=== PATIENT | male | born 1960 | race Caucasian/White ===

== ENCOUNTER 2019-04-09 01:12 | Emergency (ER) | payer OTHER ==
[~2019-04-09] VITALS: Ht 177.8 cm; Wt 142.0 kg
--- NOTE | 2019-04-09 01:35 | ED.ADGEN ---
Past History Past Medical History: Diabetes, Hypertension Adult General Chief Complaint Chief Complaint ".. I was just sitting at my desk... and ..... All of sudden tonight.. I got slurred speech.. and I could not move my Lt. leg.. and arm.. I can move my leg now... I tried to get up at home.. but I fell because of the weakness on my Lt. side.. . I [facility] me..." HPI HPI Patient is a 59 year old male who presents with above hx and complaints of slurred speech and Lt. side weakness. Pt. does a history of diabetes, hyperlipidemia, hypertension, morbid obesity. Patient on arrival was able to move his left leg that had noticeable weakness of left arm and slurred speech. Patient taken immediately to CT head observed to have a right intracerebral bleed. Discussed presentation with Dr. Lara and Dr. Whitaker CARGO AGENT. Pt. to be transferred to [facility] Neuro ICU. [facility] 8 on arrival. Review of Systems Review of Systems Constitutional: Denies fever or chills [] Eyes: Denies change in visual acuity, redness, or eye pain [] HENT: Denies nasal congestion or sore throat [] Respiratory: Denies cough or shortness of breath [] Cardiovascular: No additional information not addressed in HPI [] GI: Denies abdominal pain, nausea, vomiting, bloody stools or diarrhea [] : Denies dysuria or hematuria [] Musculoskeletal: Complaints of Lt side weakness Integument: Denies rash or skin lesions [] Neurologic: Denies headache, focal weakness Lt arm and Lt. leg, more Lt. arm. [] Complaints of slurred speech. Endocrine: Denies polyuria or polydipsia [] All other systems were reviewed and found to be within normal limits, except as documented in this note. Family History Family History DM , HTN Current Medications Current Medications Current Medications Medications (Trade) Dose Ordered Sig/Javed Start Time Stop Time Status Last Admin Dose Admin Esmolol HCl 250 ml @ 0 mls/hr 1X ONCE 04/09/19 02:00 04/09/19 02:01 DC Lactated Ringer's 1,000 ml @ 100 mls/hr Q10H 04/09/19 01:43 04/09/19 02:13 DC Sodium Chloride 1,000 ml @ 100 mls/hr Q10H 04/09/19 01:43 04/09/19 02:13 DC Allergies Allergies Allergies Coded Allergies Type Severity Reaction Last Updated Verified No Known Drug Allergies 04/09/19 No Physical Exam Physical Exam Constitutional: in acute distress, non-toxic appearance. [] HENT: Normocephalic, atraumatic, bilateral external ears normal, oropharynx moist, no oral exudates, nose normal. Mild Left facial weakness and slurred speech Eyes: PERRLA, EOMI, conjunctiva normal, no discharge. [] Neck: Normal range of motion, no tenderness, supple, no stridor. [] Cardiovascular: Tachycardia Heart rate regular rhythm, no murmur [], PMI to the left Lungs & Thorax: Bilateral breath sounds equal at apex on auscultation [] Abdomen: Bowel sounds normal, soft, no tenderness, no masses, no pulsatile masses. Obese. Skin: Warm, dry, no erythema, no rash. [] Back: No tenderness, no CVA tenderness. [] Extremities: No tenderness, no cyanosis, no clubbing, marked left arm weakness and mild left leg weakness, no edema. [] Neurologic: Alert and oriented X 3, left-sided weakness, has distal sensory, Psychologic: Affect anxious, judgement normal, mood normal. [] Current Patient Data Vital Signs Vital Signs Date Time Temp Pulse Resp B/P (MAP) Pulse Ox O2 Delivery O2 Flow Rate FiO2 04/09/19 01:54 97 19 162/63 (96) 95 Nasal Cannula 2.0 04/09/19 01:34 97.9 Lab Results Laboratory Tests Test 04/09/19 01:25 White Blood Count 8.9 x10^3/uL (4.0-11.0) Red Blood Count 4.13 x10^6/uL (4.30-5.70) L Hemoglobin 14.1 g/dL (13.0-17.5) Hematocrit 41.1 % (39.0-53.0) Mean Corpuscular Volume 100 fL (79-100) Mean Corpuscular Hemoglobin 34 pg (25-35) Mean Corpuscular Hemoglobin Concent 34 g/dL (31-37) Red Cell Distribution Width 13.6 % (11.5-14.5) Platelet Count 215 x10^3/uL (140-400) Neutrophils (%) (Auto) 56 % (31-73) Lymphocytes (%) (Auto) 34 % (24-48) Monocytes (%) (Auto) 7 % (0-9) Eosinophils (%) (Auto) 3 % (0-3) Basophils (%) (Auto) 1 % (0-3) Neutrophils # (Auto) 5.0 x10^3uL (1.8-7.7) Lymphocytes # (Auto) 3.0 x10^3/uL (1.0-4.8) Monocytes # (Auto) 0.6 x10^3/uL (0.0-1.1) Eosinophils # (Auto) 0.3 x10^3/uL (0.0-0.7) Basophils # (Auto) 0.1 x10^3/uL (0.0-0.2) Prothrombin Time 9.9 SEC (9.4-11.4) Prothrombin Time INR 1.0 (0.9-1.1) Activated Partial Thromboplast Time 24 SEC (23-33) D-Dimer (Apyrl) 0.59 mg/L (0.00-0.50) H Sodium Level 143 mmol/L (136-145) Potassium Level 4.0 mmol/L (3.5-5.1) Chloride Level 105 mmol/L (98-107) Carbon Dioxide Level 28 mmol/L (21-32) Anion Gap 10 (6-14) Blood Urea Nitrogen 19 mg/dL (8-26) Creatinine 1.2 mg/dL (0.7-1.3) Estimated GFR (Cockcroft-Gault) 61.6 Glucose Level 181 mg/dL (70-99) H Calcium Level 9.0 mg/dL (8.5-10.1) Magnesium Level 1.3 mg/dL (1.8-2.4) L Total Bilirubin 0.6 mg/dL (0.2-1.0) Direct Bilirubin 0.2 mg/dL (0.0-0.2) Aspartate Amino Transferase (AST) 29 U/L (15-37) Alanine Aminotransferase (ALT) 49 U/L (16-63) Alkaline Phosphatase 67 U/L (46-116) Creatine Kinase 275 U/L (39-308) Troponin I Quantitative < 0.017 ng/mL (0-0.055) MJ-Mgh-T-Type Natriuretic Peptide 24 pg/mL (0-124) Total Protein 6.7 g/dL (6.4-8.2) Albumin 3.7 g/dL (3.4-5.0) Lipase 92 U/L (73-393) EKG EKG My interpretation EKG shows a sinus rhythm at 98 bpm no findings acute STEMI[] Radiology/Procedures Radiology/[place] [address] IMAGING REPORT Signed PATIENT: REX MENDIOLA AACCOUNT: [id number] : 1960 LOCATION: ER AGE: 59 SEX: M EXAM STATUS: DEP ER ORD. PHYSICIAN: PAYAL BLISS MD REASON: cva, short of air PROCEDURE: PORTABLE CHEST 1V PORTABLE CHEST 1V Clinical History: CVA, dyspnea Technique: AP view of the chest was obtained at 04/09/2019 1:43 AM. Comparison: None. Findings: The heart is borderline enlarged. The pulmonary vasculature is normal. The lungs and pleural margins are clear. Impression: Borderline cardiomegaly. Electronically signed by: Salas Saenz III, MD (04/09/2019 2:54 AM) [facility] DICTATED AND SIGNED BY: SALAS SAENZ III, MD DATE: 04/09/19 0254 CC: PAYAL BLISS MD; PCP,NO ~ I interpretation CT shows an acute intercerebral hemorrhage right sided.[][address] [address] IMAGING REPORT Signed PATIENT: REX MENDIOLA AACCOUNT: [id number] : 1960 LOCATION: ER AGE: 59 SEX: M EXAM STATUS: REG ER ORD. PHYSICIAN: PAYAL BLISS MD REASON: Left sided weakness, slurred speech PROCEDURE: CT CODE STROKE HEAD WO CT Head W/O Contrast: History: Left-sided weakness and slurred speech Comparison: none Axial images were obtained without contrast. There is a acute bleed in the right del cid radiata that measures 4.2 x 2.4 cm and continues inferiorly into the right thalamus and continues anteriorly medial to the caudate nucleus. The fong and white matter appears normal and symmetrical for the patients age. There is no midline shift, extraaxial fluid collections or hydrocephalus. There is no focal loss of fong-white matter distinction to suggest acute ischemia, i.e. stroke. Impression: Acute intraparenchymal cerebral hemorrhage on the right no mass effect. No midline shift. These results were called to the Emergency Department at the time of dictation. RS Compliance Statement: One or more of the following individualized dose reduction techniques were utilized for this examination: 1. Automated exposure control 2. Adjustment of the mA and/or kV according to patient size 3. Use of iterative reconstruction technique FOR INTERNAL CODING PURPOSES Critical result: Findings discussed with PAYAL BLISS at 04/09/2019 1:36 AM. RESULT CODE: (C) Electronically signed by: Salas Saenz III, MD (04/09/2019 1:36 AM) [facility] Course & Med Decision Making Course & Med Decision Making Pertinent Labs and Imaging studies reviewed. (See chart for details) Critical care 30 min. Transfer to [facility]- Dr. Lara and Dr. Carter neurosurgery consult. [] Final Impression Final Impression 1. Right intracerebral bleed- Lt side weakness, slurred speech. 2. History of hypertension 3. History hyperlipidemia 4. History of diabetes-glucose 181 5. Elevate D-dimer 0.59 [] Dragon Disclaimer Dragon Disclaimer This electronic medical record was generated, in whole or in part, using a voice recognition dictation system. Dragon Disclaimer This chart was dictated in whole or in part using Voice Recognition software in a busy, high-work load, and often noisy Emergency Department environment. It may contain unintended and wholly unrecognized errors or omissions. PAYAL BLISS MD Apr 09, 2019 01:35
--- NOTE | 2019-04-09 01:39 | RAD ---
CT Head W/O Contrast: History: Left-sided weakness and slurred speech Comparison: none Axial images were obtained without contrast. There is a acute bleed in the right del cid radiata that measures 4.2 x 2.4 cm and continues inferiorly into the right thalamus and continues anteriorly medial to the caudate nucleus. The fong and white matter appears normal and symmetrical for the patients age. There is no midline shift, extraaxial fluid collections or hydrocephalus. There is no focal loss of fong-white matter distinction to suggest acute ischemia, i.e. stroke. Impression: Acute intraparenchymal cerebral hemorrhage on the right no mass effect. No midline shift. These results were called to the Emergency Department at the time of dictation. PQRS Compliance Statement: One or more of the following individualized dose reduction techniques were utilized for this examination: 1. Automated exposure control 2. Adjustment of the mA and/or kV according to patient size 3. Use of iterative reconstruction technique FOR INTERNAL CODING PURPOSES Critical result: Findings discussed with PAYAL BLISS at 04/09/2019 1:36 AM. RESULT CODE: (C) Electronically signed by: Josue Barron III, MD (04/09/2019 1:36 AM) [facility]
[2019-04-09] MEDS ORDERED: IV NORMAL SALINE 1,000ML 1,000 ML IV SCH (01:43)
[2019-04-09] MEDS ORDERED: IV RINGERS SOLUTION,LACTATED 1,000 ML IV SCH (01:43)
[2019-04-09 01:54] VITALS: BP 162/63
[2019-04-09 01:55] LABS: BASO # 0.1 x10^3/uL (0.0-0.2); BASO % 1 % (0-3); EOS # 0.3 x10^3/uL (0.0-0.7); EOS % 3 % (0-3); HEMATOCRIT 41.1 % (39.0-53.0); HEMOGLOBIN 14.1 g/dL (13.0-17.5); LYMPH % 34 % (24-48); MEAN CORPUSCULAR HEMOGLOBIN 34 pg (25-35); MEAN CORPUSCULAR HGB CONC 34 g/dL (31-37); MEAN CORPUSCULAR VOLUME 100 fL (79-100); MONO # 0.6 x10^3/uL (0.0-1.1); MONO % 7 % (0-9); NEUT % 56 % (31-73); PLATELET COUNT 215 x10^3/uL (140-400); RED BLOOD COUNT 4.13 x10^6/uL (4.30-5.70); RED CELL DISTRIBUTION WIDTH 13.6 % (11.5-14.5); WHITE BLOOD COUNT 8.9 x10^3/uL (4.0-11.0)
[2019-04-09] MEDS ORDERED: ESMOLOL 2500MG/250ML PREMIX 250 ML IV ONE (02:00)
[2019-04-09 02:17] LABS: ALBUMIN 3.7 g/dL (3.4-5.0); CREATININE 1.2 mg/dL (0.7-1.3); DIRECT BILIRUBIN 0.2 mg/dL (0.0-0.2); GFR 61.6; MAGNESIUM 1.3 mg/dL (1.8-2.4); TOTAL BILIRUBIN 0.6 mg/dL (0.2-1.0); TOTAL PROTEIN 6.7 g/dL (6.4-8.2)
--- NOTE | 2019-04-09 02:57 | RAD ---
PORTABLE CHEST 1V Clinical History: CVA, dyspnea Technique: AP view of the chest was obtained at 04/09/2019 1:43 AM. Comparison: None. Findings: The heart is borderline enlarged. The pulmonary vasculature is normal. The lungs and pleural margins are clear. Impression: Borderline cardiomegaly. Electronically signed by: Josue Barron III, MD (04/09/2019 2:54 AM) [facility]
--- NOTE | 2019-04-10 03:32 | EKG ---
[address] [address] Test Date: 2019-04-09 Test Time: 01:43:29 Pat Name: RXE MENDIOLA Department: Room: Gender: M Quality Review Trainer: : 1960 Requested By: PAYAL BLISS Order Number: [id number] Reading MD: Measurements Intervals [place] Rate: 98 P: 59 AL: 194 QRS: 54 QRSD: 82 T: 34 QT: 332 QTc: 426 Interpretive Statements SINUS RHYTHM NO SPECIFIC ECG ABNORMALITIES RI6.01 No previous ECG available for comparison
== END 2019-04-09 02:13 | disposition short-term general hospital (02) ==
LOC: ER 01:12
DX: I61.9 Nontraumatic intracerebral hemorrhage, unspecified (principal); R47.81 Slurred speech; R53.1 Weakness; R79.1 Abnormal coagulation profile; I10 Essential (primary) hypertension; E11.9 Type 2 diabetes mellitus without complications; E03.9 Hypothyroidism, unspecified
CPT/HCPCS: 36415; 70450; 71045; 80048; 80076; 82550; 83690; 83735; 83880; 84443; 84484; 85025; 85379; 85610; 85730; 93005; 99281; 99291